=== PATIENT | male | born 1970 | race Two or more races ===

== ENCOUNTER → 2021-08-30 | Outpatient (CLI) | payer MEDICAID ==
[2021-08-30 12:50] LABS: Basophils # (auto) 0 10 ^3/uL (0-0.2); Basophils % (auto) 0.5 % (0.0-2.0); Eosinophils # (auto) 0.1 10 ^3/uL (0-0.8); Eosinophils % (auto) 1.6 % (0.0-7.0); Hematocrit 47.3 % (41.0-53.0); Hemoglobin 15.7 g/dL (13.5-17.5); Lymphocytes # (auto) 2.8 10 ^3/uL (0.4-5.4); Lymphocytes % (auto) 36.2 % (10.0-50.0); Mean Corpuscular Hemoglobin 29.3 pg (28.0-32.0); Mean Corpuscular Hgb Conc. 33.1 g/dL (32.0-36.0); Mean Corpuscular Volume 88.5 fL (80.0-100.0); Monocytes # (auto) 0.6 10 ^3/uL (0-1.3); Monocytes % (auto) 7.9 % (0.0-12.0); Neutrophils # (auto) 4.2 10 ^3/uL (1.6-8.6); Neutrophils % (auto) 53.8 % (37.0-80.0); Red Blood Cells 5.34 10^6/uL (4.5-5.90); Red Cell Distribution Width 13.8 % (11.8-14.3); White Blood Cell 7.8 10^3/uL (4.4-10.8)
[2021-08-30 13:02] LABS: Urine Bacteria NONE SEEN /hpf (None Seen); Urine Blood TRACE /uL (Negative); Urine Mucus FEW (None Seen); Urine Specific Gravity 1.016 (1.001-1.035); Urine WBC 1 /hpf (0 - 3)
[2021-08-30 13:08] LABS: Albumin 3.7 g/dL (3.4-5.0); Calcium 9.2 mg/dL (8.5-10.1); Potassium 4.1 mmol/L (3.5-5.1)
[2021-08-30 13:15] LABS: BUN/Creatinine Ratio 18.1; Bilirubin, Total 0.7 mg/dL (0.2-1.0); Total Protein 7.8 g/dL (6.4-8.2)
== END | disposition home or self-care (01) ==
LOC: LAB 11:49
PROVIDERS: ATTEND Internal Medicine
DX: M06.9 Rheumatoid arthritis, unspecified (principal); E11.9 Type 2 diabetes mellitus without complications; E78.5 Hyperlipidemia, unspecified
CPT/HCPCS: 36415; 80053; 80061; 81001; 82043; 83036; 85025; 85652; 86431

== ENCOUNTER → 2022-09-15 | Outpatient (CLI) | payer MEDICAID | END | disposition home or self-care (01) | LOC: LAB 10:22 | PROVIDERS: ATTEND Internal Medicine | DX: R73.03 Prediabetes (principal) | CPT/HCPCS: 36415; 82043; 82570 ==

== ENCOUNTER → 2022-12-15 | Outpatient (CLI) | payer MEDICAID ==
[2022-12-15 11:43] LABS: Creatinine, Urine 203.1 mg/dL (30.0-125.0)
[2022-12-15 11:46] LABS: Triglycerides 112 mg/dL (< 150)
[2022-12-15 11:47] LABS: LDL Cholesterol 71 mg/dL (< 100)
[2022-12-15 11:48] LABS: Cholesterol 132 mg/dL (< 200); HDL Cholesterol 44 mg/dL (40-59)
== END | disposition home or self-care (01) ==
LOC: LAB 10:14
PROVIDERS: ATTEND Internal Medicine
DX: R73.03 Prediabetes (principal)
CPT/HCPCS: 36415; 80061; 82043; 82570; 83036

== ENCOUNTER → 2023-03-16 | Outpatient (CLI) | payer MEDICAID ==
[2023-03-16 10:35] LABS: Chloride 110 mmol/L (98-107); Potassium 5.1 mmol/L (3.5-5.1); Sodium 142 mmol/L (136-145)
[2023-03-16 10:36] LABS: Anion Gap 6 (5-15); Calcium 10.1 mg/dL (8.5-10.1); Carbon Dioxide 26 mmol/L (20-30)
[2023-03-16 10:41] LABS: BUN/Creatinine Ratio 9.1 (10.0-20.0); Blood Urea Nitrogen 8 mg/dL (9-23); Glucose 117 mg/dL (74-106)
== END | disposition home or self-care (01) ==
LOC: LAB 09:35
PROVIDERS: ATTEND Internal Medicine
DX: E11.9 Type 2 diabetes mellitus without complications (principal)
CPT/HCPCS: 36415; 80048; 83036

== ENCOUNTER → 2023-04-29 | Outpatient (CLI) | payer MEDICAID ==
[2023-04-29 10:01] LABS: CRP High Sensitivity 0.57 mg/dL (<1.0)
[2023-04-29 10:14] LABS: Erythrocyte Sedimentation Rate 9 mm/hr (0-20)
== END | disposition home or self-care (01) ==
LOC: LAB 09:17
PROVIDERS: ATTEND Internal Medicine
DX: M25.511 Pain in right shoulder (principal)
CPT/HCPCS: 36415; 82550; 85652; 86141

== ENCOUNTER → 2023-10-07 | Outpatient (CLI) | payer MEDICAID ==
[2023-10-07 12:07] LABS: Albumin 3.8 g/dL (3.2-4.8); Alkaline Phosphatase 168 U/L (46-116); Aspartate Aminotransferase 14 U/L (13-40); Bilirubin, Direct 0.1 mg/dL (<0.3); Bilirubin, Total 0.4 mg/dL (0.2-1.0)
[2023-10-07 12:08] LABS: Total Protein 6.8 g/dL (5.7-8.2)
[2023-10-07 12:09] LABS: Alanine Aminotransferase < 9 U/L (7-40)
== END | disposition home or self-care (01) ==
LOC: LAB 11:18
PROVIDERS: ATTEND Internal Medicine
DX: E11.9 Type 2 diabetes mellitus without complications (principal); E78.5 Hyperlipidemia, unspecified
CPT/HCPCS: 36415; 80076

== ENCOUNTER → 2024-01-26 | Outpatient (CLI) | payer MEDICAID ==
[2024-01-26 10:23] LABS: Basophils # (auto) 0 10 ^3/uL (0-0.2); Basophils % (auto) 0.4 % (0.0-2.0); Eosinophils # (auto) 0.2 10 ^3/uL (0-0.8); Hematocrit 48.8 % (41.0-53.0); Hemoglobin 16.6 g/dL (13.5-17.5); Lymphocytes # (auto) 3.1 10 ^3/uL (0.4-5.4); Lymphocytes % (auto) 39.3 % (10.0-50.0); Mean Corpuscular Hemoglobin 30.3 pg (28.0-32.0); Mean Corpuscular Volume 89.3 fL (80.0-100.0); Monocytes # (auto) 0.4 10 ^3/uL (0-1.3); Monocytes % (auto) 5.7 % (0.0-12.0); Neutrophils # (auto) 4.1 10 ^3/uL (1.6-8.6); Neutrophils % (auto) 52.6 % (37.0-80.0); Nucleated Red Blood Cells % 0.2 %; Platelet Count (auto) 293 10^3/uL (140-450); Red Blood Cells 5.47 10^6/uL (4.5-5.90); Red Cell Distribution Width 15.7 % (11.8-14.3); White Blood Cell 7.8 10^3/uL (4.4-10.8)
[2024-01-26 10:42] LABS: Albumin 4.5 g/dL (3.2-4.8); Anion Gap 6 (5-15); Aspartate Aminotransferase 14 U/L (13-40); BUN/Creatinine Ratio 8.7 (10.0-20.0); Bilirubin, Total 1.2 mg/dL (0.2-1.0); Calcium 10.4 mg/dL (8.7-10.4); Carbon Dioxide 28 mmol/L (20-31); Chloride 106 mmol/L (98-107); Sodium 140 mmol/L (136-145); Total Protein 7.9 g/dL (5.7-8.2)
[2024-01-26 10:51] LABS: Alanine Aminotransferase < 9 U/L (7-40); Alkaline Phosphatase 126 U/L (46-116); Blood Urea Nitrogen 8 mg/dL (9-23); Glucose 132 mg/dL (74-106)
[2024-01-26 10:54] LABS: Creatinine, Urine 78.75 mg/dL (30.0-125.0)
== END | disposition home or self-care (01) ==
LOC: LAB 09:31
PROVIDERS: ATTEND Internal Medicine
DX: E11.9 Type 2 diabetes mellitus without complications (principal); E78.5 Hyperlipidemia, unspecified; M54.9 Dorsalgia, unspecified; G62.9 Polyneuropathy, unspecified
CPT/HCPCS: 36415; 80053; 82043; 82306; 82570; 82607; 83036; 85025

== ENCOUNTER 2024-05-17 07:15 | Day surgery (SDC) | payer MEDICAID ==
[2024-05-11 12:40] LABS: Urine Bacteria None Seen /hpf (None Seen)
[2024-05-11 12:56] LABS: Urine Blood Negative /uL (Negative); Urine Clarity Clear (Clear); Urine Color Colorless (Yellow); Urine Protein, UAD Negative (Negative); Urine Specific Gravity 1.005 (1.001-1.035); Urine Squamous Epithelial Cell None Seen /hpf (<5); Urine Urobilinogen Normal (Negative); Urine WBC 1 /HPF (0-3)
[2024-05-11 13:03] LABS: Basophils # (auto) 0.1 10 ^3/uL (0-0.2); Basophils % (auto) 0.7 % (0.0-2.0); Eosinophils # (auto) 0.1 10 ^3/uL (0-0.8); Eosinophils % (auto) 1.3 % (0.0-7.0); Hematocrit 46.9 % (41.0-53.0); Hemoglobin 15.6 g/dL (13.5-17.5); Lymphocytes # (auto) 2.9 10 ^3/uL (0.4-5.4); Lymphocytes % (auto) 35.8 % (10.0-50.0); Mean Corpuscular Hemoglobin 29.8 pg (28.0-32.0); Mean Corpuscular Hgb Conc. 33.3 g/dL (32.0-36.0); Mean Corpuscular Volume 89.6 fL (80.0-100.0); Monocytes # (auto) 0.4 10 ^3/uL (0-1.3); Monocytes % (auto) 5.6 % (0.0-12.0); Neutrophils # (auto) 4.5 10 ^3/uL (1.6-8.6); Neutrophils % (auto) 56.6 % (37.0-80.0); Nucleated Red Blood Cells % 0.1 %; Platelet Count (auto) 251 10^3/uL (140-450); Red Blood Cells 5.24 10^6/uL (4.5-5.90); Red Cell Distribution Width 15.8 % (11.8-14.3)
[2024-05-11 13:09] LABS: INR 0.99 (0.9-1.15); Partial Thromboplastin Time 29.7 SEC (24.5-34.5); Prothrombin Time 10.5 sec (9.3-11.8)
[2024-05-11 13:41] LABS: Albumin 4.8 g/dL (3.2-4.8); Anion Gap 8 (5-15); Aspartate Aminotransferase 13 U/L (13-40); BUN/Creatinine Ratio 11.8 (10.0-20.0); Bilirubin, Total 0.7 mg/dL (0.2-1.0); Blood Urea Nitrogen 10 mg/dL (9-23); Calcium 10.1 mg/dL (8.7-10.4); Carbon Dioxide 28 mmol/L (20-31); Chloride 105 mmol/L (98-107); Potassium 4.5 mmol/L (3.5-5.1); Sodium 141 mmol/L (136-145)
[2024-05-11 13:44] LABS: Alanine Aminotransferase 9 U/L (7-40); Alkaline Phosphatase 128 U/L (46-116); Glucose 115 mg/dL (74-106)
[~2024-05-17] VITALS: Ht 177.8 cm; Wt 109.8 kg
[~2024-05-17 07:15] MED LIST: ATOR10TA52 PO; CHOL500021 OR; CYCL-614 PO; GABA-1250 PO; HYDR-4902 PO; LISI-275 PO; METF-370 PO; METH2.5T PO; SECU1INJ4 SC
[2024-05-17] MEDS ORDERED: KETAMINE 50mg/ML 1ml syringe ONE (07:54)
[2024-05-17] MEDS ORDERED: ONDANSETRON HCL 4 MG/2 ML VIAL ONE (07:55)
[2024-05-17] MEDS ORDERED: LIDOCAINE 1% INJ PF 5ML AMP ONE (07:55)
[2024-05-17] MEDS ORDERED: DexAMETHasone SOD PHOS 10MG/1ML VIAL INJ ONE (07:55)
[2024-05-17] MEDS ORDERED: PROPOFOL 10 MG/ML 20 ML IV ONE (07:55)
[2024-05-17] MEDS ORDERED: fentaNYL CITRATE 5 ML ONE (07:55)
[2024-05-17] MEDS ORDERED: fentaNYL CITRATE 100 MCG/2 ML VL ONE (07:55)
[2024-05-17] MEDS ORDERED: LIDOCAINE HCL 2% TOP JELLY 5ML TOP ONE (07:55)
[2024-05-17] MEDS ORDERED: ROCURONIUM 10MG/ML 10ML VIAL IV ONE (07:55)
[2024-05-17] MEDS ORDERED: SODIUM CHLORIDE LOCK 10 ML ONE (07:55)
[2024-05-17] MEDS ORDERED: HYDROmorphone HCL 2 MG/ML VL/or syr ONE (07:55)
[2024-05-17] MEDS ORDERED: MIDAZOLAM HCL 2MG/2ML 2ml VIAL (1mg/ml) ONE (07:55)
[2024-05-17] MEDS ORDERED: METOCLOPRAMIDE HCL 5MG/ml INJ 2ml VIAL IV ONE (09:15)
[2024-05-17] MEDS ORDERED: ACCU-CHEK COMFORT CURVE STRIP VI ONE (09:15)
[2024-05-17] MEDS ORDERED: HYDROmorphone HCL 2 MG/ML VL/or syr IV PRN ×2 (09:15)
[2024-05-17] MEDS ORDERED: MORPHINE SULFATE INJ 2 MG/ml SYRG IV PRN (09:15)
[2024-05-17] MEDS ORDERED: MORPHINE SULFATE 4 MG/ML SYR/VIAL IV PRN (09:15)
[2024-05-17] MEDS ORDERED: EPINEPHrine HCL 1 MG/1 ML AMP ONE (09:26)
[2024-05-17] MEDS ORDERED: SODIUM CHLORIDE LOCK 40 ML ONE (10:51)
[2024-05-17] MEDS ORDERED: GLYCOPYRROLATE 0.2 MG/ML 1ML VIAL ONE (11:06)
[2024-05-17] MEDS ORDERED: NEOSTIGMINE 1 MG/ML INJ (10mg/10ML VIAL) ONE (11:06)
[2024-05-17] MEDS: ceFAZolin 2 GM/D5W100ml 100 ML IV ONE (11:32)
[2024-05-17] MEDS: BUPIVACAINE HCL 50 ML ONE (11:33)
[2024-05-17 11:53] VITALS: PULSE 105; RESP 25; TEMP 97.2
[2024-05-17 12:43] VITALS: BP 141/61; PULSE 97; RESP 18; O2SAT 99
--- NOTE | 2024-05-17 17:08 | DVHOP ---
DATE OF SURGERY: 05/17/2024 PREOPERATIVE DIAGNOSIS: Right shoulder rotator cuff tear. POSTOPERATIVE DIAGNOSIS: Right shoulder rotator cuff tear. PROCEDURE PERFORMED: Right shoulder arthroscopy with rotator cuff repair and subacromial decompression. ANESTHESIA: General with interscalene block. COMPLICATIONS: None. IMPLANTS: Used Arthrex FiberTak 2.6 rotator cuff x1 and self-punching SwiveLock x1. INDICATIONS FOR PROCEDURE: The patient presented to the clinic with a history of shoulder pain. Clinical and radiological evaluation demonstrated complete rotator cuff tendon tear. Nonoperative and operative management options were discussed. Surgery in the form of shoulder arthroscopy with rotator cuff repair was indicated. Benefits, risks, and treatment alternatives were discussed. Specific complications of surgery such as neurovascular injury, infection, arthrofibrosis, loss of limb or life were discussed. He decided to proceed with surgical option. PROCEDURE IN DETAIL: The patient was identified in the preoperative holding area and the surgical site was marked. The consent was verified. He was brought into the operating room and placed supine on the operating table. General anesthesia was administered. Intravenous antibiotics were given. He was brought up into the beach chair position. All the bony prominences were appropriately padded. His head was secured to the beach chair attachment. The extremity was now prepped and draped in the usual sterile manner. A timeout was called out to confirm the identity of the patient, the nature of surgery, site of surgery, the benefit of implants, x-rays and allergies to medications. Standard posterior portal was established. A 30-degree scope was inserted. A standard anterior portal was established. A probe was inserted and the findings were as follows. * Intact subscapularis tendon. * Intact biceps tendon. * Full thickness rotator cuff tendon, minimal retraction. * Intact glenohumeral cartilage identified, degenerative labral tears. Subacromial space was entered. Subacromial bursectomy was carried out. The tear was identified. This was a full thickness tear. This was small to medium in size with minimal retraction. I decided to repair this with a double row technique. A medial row FiberTak 3.6 anchor was inserted with a drill guide and a drill. Excellent fixation was noted. Bone quality was considered to be excellent. All 6 sutures were now passed through the rotator cuff. The medial row was tied. All 6 sutures were now brought into the lateral row anchor into the lateral part of the footprint. Excellent fixation was noted. Watertight closure was noted. Debridement of the footprint and the rotator cuff tendons was achieved for better healing. Subacromial decompression was completed with acromioplasty. Downsloping acromion was noted. The ACL ligament was elevated off the anterior edge of the acromion. Next, a bur was utilized to remove 7 mm of the anterior ridge of the acromion. Irrigation was given. The skin incisions were closed with 3-0 nylon. Sterile dressing was applied, even the shoulder was placed in a shoulder immobilizer. DISPOSITION: Good, the patient was extubated and taken to recovery without any complications. PLAN: Stay in the brace at all times. Follow up in 2 weeks for suture removal. To start physical therapy at that time. Lito Costello MD KK/KRISTOPHER TID: [id number] RECEIPT: [id number] MTDD
[2024-05-17] MEDS ORDERED: ASPI1TAB20 PO (20:08)
[2024-05-17] MEDS ORDERED: HYDR-4902 PO (20:08)
[2024-05-17] MEDS ORDERED: CEPH500C PO (20:08)
== END 2024-05-17 13:00 | disposition home or self-care (01) ==
LOC: SUR 07:15
PROVIDERS: ATTEND Orthopaedic Surgery Sports Medicine
DX: M75.121 Complete rotator cuff tear or rupture of right shoulder, not specified as traumatic (principal); M75.81 Other shoulder lesions, right shoulder; I10 Essential (primary) hypertension; E11.42 Type 2 diabetes mellitus with diabetic polyneuropathy; E78.00 Pure hypercholesterolemia, unspecified; M45.9 Ankylosing spondylitis of unspecified sites in spine; E66.9 Obesity, unspecified; Z68.34 Body mass index [BMI] 34.0-34.9, adult; Z79.84 Long term (current) use of oral hypoglycemic drugs; Z79.899 Other long term (current) drug therapy; Z98.1 Arthrodesis status; Z98.890 Other specified postprocedural states
CPT/HCPCS: 29826; 29827; 36415; 80053; 81001; 82962; 85025; 85610; 85730; C1713; J0171; J1100; J1171; J2250; J2405; J2704; J3010; J3490; A4565

== ENCOUNTER → 2024-06-28 | Outpatient (CLI) | payer MEDICAID ==
[~2024-06-28] MED LIST changes: +ASPI1TAB20 PO; +CEPH500C PO
[2024-06-28 09:25] LABS: Alanine Aminotransferase 13 U/L (7-40); Alkaline Phosphatase 107 U/L (46-116); Anion Gap 6 (5-15); BUN/Creatinine Ratio 11.7 (10.0-20.0); Blood Urea Nitrogen 9 mg/dL (9-23); Calcium 10.1 mg/dL (8.7-10.4); Carbon Dioxide 28 mmol/L (20-31); Sodium 142 mmol/L (136-145); Total Protein 7.4 g/dL (5.7-8.2)
[2024-06-28 09:26] LABS: Albumin 4.4 g/dL (3.2-4.8); Aspartate Aminotransferase 19 U/L (13-40); Bilirubin, Total 0.8 mg/dL (0.2-1.0)
[2024-06-28 09:29] LABS: Chloride 108 mmol/L (98-107); Glucose 113 mg/dL (74-106); Potassium 5.3 mmol/L (3.5-5.1)
== END | disposition home or self-care (01) ==
LOC: LAB 08:27
PROVIDERS: ATTEND Internal Medicine
DX: E11.9 Type 2 diabetes mellitus without complications (principal); E78.5 Hyperlipidemia, unspecified
CPT/HCPCS: 36415; 80053; 83036

== ENCOUNTER → 2024-07-06 | Outpatient (CLI) | payer MEDICAID ==
[2024-07-06 09:56] LABS: Anion Gap 8 (5-15); Carbon Dioxide 26 mmol/L (20-31); Potassium 4.4 mmol/L (3.5-5.1); Sodium 142 mmol/L (136-145)
[2024-07-06 09:57] LABS: Calcium 9.9 mg/dL (8.7-10.4)
[2024-07-06 10:02] LABS: BUN/Creatinine Ratio 14.5 (10.0-20.0); Blood Urea Nitrogen 10 mg/dL (9-23)
[2024-07-06 10:03] LABS: Chloride 108 mmol/L (98-107); Glucose 117 mg/dL (74-106)
== END | disposition home or self-care (01) ==
LOC: LAB 08:48
PROVIDERS: ATTEND Internal Medicine
DX: E11.9 Type 2 diabetes mellitus without complications (principal)
CPT/HCPCS: 36415; 80048

== ENCOUNTER 2024-10-03 09:25 | Outpatient (CLI) | payer MEDICAID ==
[2024-10-03 10:06] LABS: Albumin 4.8 g/dL (3.2-4.8); Anion Gap 8 (5-15); BUN/Creatinine Ratio 12.3 (10.0-20.0); Blood Urea Nitrogen 9 mg/dL (9-23); Calcium 9.7 mg/dL (8.7-10.4); Carbon Dioxide 28 mmol/L (20-31); Cholesterol 167 mg/dL (< 200); HDL Cholesterol 45 mg/dL (40-59); Potassium 4.5 mmol/L (3.5-5.1); Sodium 144 mmol/L (136-145); Total Protein 7.6 g/dL (5.7-8.2); Triglycerides 133 mg/dL (< 150)
[2024-10-03 10:07] LABS: Bilirubin, Total 0.6 mg/dL (0.2-1.0)
[2024-10-03 10:09] LABS: Alanine Aminotransferase < 9 U/L (7-40); Alkaline Phosphatase 126 U/L (46-116); Chloride 108 mmol/L (98-107); Glucose 137 mg/dL (74-106)
== END 2024-10-03 17:00 | disposition home or self-care (01) ==
LOC: LAB 09:25
PROVIDERS: ATTEND Internal Medicine
DX: E11.9 Type 2 diabetes mellitus without complications (principal)
CPT/HCPCS: 36415; 80053; 80061; 83036

== ENCOUNTER → 2024-10-21 | Outpatient (CLI) | payer MEDICAID ==
[2024-10-21 15:05] LABS: Alanine Aminotransferase 10.0 U/L (7-40); Albumin 4.3 g/dL (3.2-4.8); Bilirubin, Direct 0.2 mg/dL (<0.3); Bilirubin, Total 0.6 mg/dL (0.2-1.0); Total Protein 7.6 g/dL (5.7-8.2)
[2024-10-21 15:17] LABS: Alkaline Phosphatase 126.0 U/L (46-116)
== END | disposition home or self-care (01) ==
LOC: LAB 14:19
PROVIDERS: ATTEND Internal Medicine
DX: E78.5 Hyperlipidemia, unspecified (principal)
CPT/HCPCS: 36415; 80076

== ENCOUNTER 2024-12-29 09:24 | Outpatient (CLI) | payer MEDICAID ==
[2024-12-29 10:08] LABS: Albumin 4.5 g/dL (3.2-4.8); Alkaline Phosphatase 111.0 U/L (46-116); Bilirubin, Direct 0.1 mg/dL (<0.3); Bilirubin, Total 0.5 mg/dL (0.2-1.0); Cholesterol 139.0 mg/dL (< 200); HDL Cholesterol 44.0 mg/dL (40-59); Total Protein 7.7 g/dL (5.7-8.2)
[2024-12-29 10:09] LABS: Alanine Aminotransferase 9.0 U/L (7-40); Triglycerides 170.0 mg/dL (< 150)
== END 2024-12-29 17:00 | disposition home or self-care (01) ==
LOC: LAB 09:24
PROVIDERS: ATTEND Internal Medicine
DX: E11.9 Type 2 diabetes mellitus without complications (principal); E78.5 Hyperlipidemia, unspecified
CPT/HCPCS: 36415; 80061; 80076; 83036